=== PATIENT | male | born 1945 | race Caucasian/White ===

== ENCOUNTER 2016-11-01 20:10 | Inpatient (IN) | payer OTHER ==
--- NOTE | ~2016-11-01 | DS ---
Discharge Summary [facility] [address] [facility] [place]. [address] NAME: JAYDON ROSE : 47 STATUS : DIS IN PAT#: [id number] AGE: 71 ADM/REG DATE : 11/01/16 MR#: [id number] REPORT SERV DATE: 11/14/16 DICTATED BY: DAYANARA CHAUDHARY DATE: 11/14/16 REPORT STATUS : Draft TRANSCRIBED BY: OLIVER DATE: 11/14/16 Data Collection from hospitalization DISCHARGE DIAGNOSES: 1. Type 1 second-degree heart block. 2. History of renal transplant. 3. Syncope/dyspnea. 4. Hypertension. 5. History of skin cancer. 6. History of prostate cancer. 7. Obstructive sleep apnea. 8. Hypocalcemia. 9. History of partial parathyroidectomy. CONSULTATIONS: Dayanara Chaudhary M.D. PROCEDURES PERFORMED: 1. Pacemaker implantation on 11/03/2016. 2. Carotid blood flow study on 11/02/2016. MEDICATIONS: Norvasc 5 mg every evening, Os-Mina plus D 500 mg every evening, Sandimmune 200 mg every evening, hydralazine 100 mg every evening, Apresoline 50 mg every morning, [place] 5/325 one tablet every four hours as needed, CellCept 750 mg every evening, Deltasone 5 mg every evening, Flomax 0.4 mg every evening, and Lasix was to be resumed at home dose. CONDITION AT DISCHARGE: Stable. DISPOSITION: The patient was discharged home on a low-sodium, renal diet with activities as instructed. He would follow up with Dr. Delfino Fuentes two to three weeks following discharge. He would follow up with Dr. Dayanara Chaudhary as instructed. HOSPITAL COURSE: This is a 71-year-old man who has chronic kidney disease. He had a renal transplant in January of 1988. He believes that the cause of his renal failure was stress. He has a family medical history of end-stage renal disease with his brother having a transplant as well. He has hypertension, obstructive sleep apnea, and a history of prostate cancer and skin cancer. He presented to the hospital with dizziness, apparently he experienced the episode approximately two weeks ago which resolved quite quickly. On the day prior to this admission while he was out at school, he became lightheaded and had to sit down. He felt as though he was going to pass out. He got clammy, but had no chest pain tightness or palpitations. He had no shortness of breath. His edema had been stable. He had no recent medication changes. The only thing that was new and different was that he had been having multiple skin cancers lately. Given all of this, he presented to the hospital. His labs were unremarkable. Chest x-ray was unremarkable. However, his EKG reveals pauses during the night and he was found to have type 1 second-degree heart block and was felt to be in need of pacemaker placement. He was admitted to the hospital at this time for further evaluation and treatment. Upon admission, creatinine level was 1.2. Gentle IV fluids would be started if his Discharge Summary [address] [place]. [address] NAME: JAYDON ROSE : 47 STATUS : DIS IN PAT#: [id number] AGE: 71 ADM/REG DATE : 11/01/16 MR#: [id number] REPORT SERV DATE: 11/14/16 DICTATED BY: DAYANARA CHAUDHARY DATE: 11/14/16 REPORT STATUS : Draft TRANSCRIBED BY: OLIVER DATE: 11/14/16 creatinine continue to rise. His usual transplant medications were continued. It was felt that he would need to undergo pacemaker placement the following day. The following day, he was seen by Dr. Dayanara Chaudhary regarding near-syncope episode of 2:1 AV block as well as brief episodes of type 1 second-degree AV block. He had symptoms associated with these episodes. BNP was slightly elevated at 162. He had had near syncopal events that were associated with the bradycardic episodes. He was not hyperkalemia. He did not have another root cause for bradycardia. It was felt that he should undergo dual-chamber pacemaker placement. He was going to undergo an echocardiogram to make certain that cardiac structure and function were normal. The patient had seen Dr. Urrutia from [facility] about a year and a half ago and was no longer his patient. He was sent to him because of some questions about atrial fibrillation, which the patient claimed that Dr. Urrutia told him that he did not have this problem. He did undergo a cardiac nuclear study at that time, which the patient reported was unremarkable. Pacemaker implantation was discussed with the patient. Echocardiogram was going to be obtained. His risk of infection was higher because he is on prednisone chronically for his renal transplant. He was willing to proceed. On 11/03/2016, he was taken to the Electrophysiology Laboratory where he underwent the above-mentioned procedure by Dr. Dayanara Chaudhary. He tolerated this well and there were no complications. An echocardiogram and carotid blood flow study had also been performed. Following his procedure, he felt well. He had no new complaints. Discharge planning was performed. Postoperatively, his Medtr[employer] device was checked and had normal device function. On 11/04/2016, he was feeling better. He was able to ambulate without event. Discharge instructions were given. Due to his improved and stable condition, he was discharged home with the above-stated instructions. Information collected by: Alise Becker I submit the above information as my discharge summary. TG/MODL Dayanara Chaudhary M.D. / [id number] CC: Ioana Ontiveros M.D.
--- NOTE | ~2016-11-01 | CN ---
Consultation Report [facility] [address] [place]. [address] NAME: JAYDON ROSE : 47 STATUS : ADM IN PAT#: [id number] AGE: 71 ADM/REG DATE : 11/01/16 MR#: [id number] REPORT SERV DATE: 11/02/16 DICTATED BY: DAYANARA CHAUDHARY DATE: 11/02/16 REPORT STATUS : Draft TRANSCRIBED BY: MODL DATE: 11/02/16 CARDIOLOGY CONSULTATION DATE OF CONSULTATION: 11/02/2016 REASON FOR CONSULTATION: Near syncope episodes of 2:1 AV block. HISTORY OF PRESENT ILLNESS: Mr. Rose is a very pleasant 71-year-old gentleman, who experienced a near syncopal event yesterday. He was at his local high school area where he became increasingly dizzy and lightheaded and was very close to passing out. Eventually, this passed. He said that he has had several of these episodes in the last few weeks. On telemetry here, he has demonstrated episodes of 2:1 AV block as well as brief episodes of type 1 second-degree AV block. He has symptoms associated with these episodes. He denies any chest pain or chest discomfort. He has had some mild dyspnea on exertion. The patient has a history of renal transplantation x3, the last one in 1987, and is followed by the Nephrology Service. PAST MEDICAL HISTORY: Notable for: 1. Renal transplant, most recently in 1987, followed by Nephrology Service. 2. History of hypertension. 3. History of prostate cancer, status post CyberKnife resection and radiation therapy approximately two years ago. 4. History of melanoma resection from the patient's back. 5. History of recurrent basal cell carcinomas, treated with excision. FAMILY HISTORY: Negative for premature coronary disease or sudden cardiac . SOCIAL HISTORY: Negative for tobacco or alcohol. REVIEW OF SYSTEMS: As noted above. All other systems reviewed and negative. PHYSICAL EXAMINATION: VITAL SIGNS: Blood pressure is 128/76; current pulse 68, but has gone down into the 30s with symptoms and the patient having both type 1 second-degree and 2:1 AV block; respirations 16. GENERAL: Well developed, well nourished. HEENT: No icterus. Good dentition. NECK: Supple. No masses or thyromegaly. LUNGS: Breathing comfortably. No rales or wheezes. COR: Normal S1, S2. No S3 or S4. No murmurs, clicks, rubs. No JVD. ABD: Soft, nondistended, nontender. No hepatosplenomegaly. EXT: No clubbing, cyanosis, or edema. Peripheral pulses 2+/= bilaterally. Consultation Report [facility] [address] [place]. [address] NAME: JAYDON ROSE : 47 STATUS : ADM IN [facility]#: [id number] AGE: 71 ADM/REG DATE : 11/01/16 MR#: [id number] REPORT SERV DATE: 11/02/16 DICTATED BY: DAYANARA CHAUDHARY DATE: 11/02/16 REPORT STATUS : Draft TRANSCRIBED BY: OLIVER DATE: 11/02/16 SKIN: Warm and dry. No visible lesions. MS: Chest wall without deformity. No obvious clavicular fractures. NEURO/PSYCH: Oriented x3. No anxiety or depression. DATA: EKG on admission demonstrated sinus rhythm, left axis deviation, first-degree AV block that is profound, QRS and QT intervals within normal limits, probable LVH by voltage. Chest x-ray, probable pulmonary edema, pulmonary vascular congestion. LABORATORY VALUES: BNP is slightly elevated at 162. Electrolytes, BUN and creatinine all within normal limits, glucose slightly elevated. White count 8.2, hematocrit of 47, platelet count 217. IMPRESSION: 1. The patient with demonstration of 2:1 block, profound first-degree AV block, episodes of what appeared to be type 1 second-degree AV block. These are symptomatic. He has near syncopal events that are associated with the bradycardic episodes. He is not hyperkalemic. Does not have another root cause for the bradycardia. I believe he should undergo dual-chamber pacemaker placement. I would like for him to have an echocardiogram to make certain that cardiac structure and function are normal. Of note, the patient did see Dr. Urrutia from [facility] about a year and a half ago and is no longer his patient. He was sent to him because of some questions about atrial fibrillation, which the patient claims that Dr. Urrutia told him he did not have this problem. He did undergo a cardiac nuclear study at that time, which the patient reports was unremarkable. I have discussed pacemaker implantation, how it is performed, as well as the inherent risks which include, but are not exclusive to bleeding, infection, pneumothorax, cardiac perforation, risk of . His risk of infection is higher because he is on prednisone chronically for his renal transplant. He is willing to proceed. 2. Pulmonary edema on admission, seems to be comfortable. We will check an echocardiogram. Question whether this could be diastolic dysfunction as the patient has LVH by voltage on his EKG and history of hypertension. We may need to work with Nephrology on salt and fluid restriction and diuretic if necessary. GS/MODL Dayanara Chaudhary M.D. / [id number] CC: Ioana Ontiveros M.D.
--- NOTE | ~2016-11-01 | HP ---
History And Physical [address] [address] NAME: JAYDON ROSE : [birth year] STATUS : ADM IN [facility]#: [id number] AGE: 71 ADM/REG DATE : 11/01/16 MR#: [id number] REPORT SERV DATE: 11/02/16 DICTATED BY: DATE: REPORT STATUS : Draft TRANSCRIBED BY: MODL DATE: 11/02/16 DATE OF ADMISSION: 11/01/2016 CHIEF COMPLAINT: Dizziness. HISTORY OF PRESENT ILLNESS: Mr. Rose is a 71-year-old white male, followed by Dr. Delfino Fuentes with CKD, renal transplant in 01/1988. He thinks the cause of his renal failure was strep and has a family medical history of end-stage renal disease with his brother having a transplant as well. He has hypertension, obstructive sleep apnea, history of prostate cancer, and skin cancers. He presented to the hospital with dizziness. Apparently, he experienced the episode approximately two weeks ago that resolved quite quickly. Then yesterday while he was out at school, became lightheaded, had to sit down, felt as though he is going to pass out, got clammy. No chest pain, tightness, or palpitations. No shortness of breath. His edema has been stable. No recent medicine changes. The only thing that is new and different is he has been having multiple skin cancers lately. Given all these, he presented to the hospital for evaluation. Labs were unremarkable. Chest x-ray unremarkable. However, his EKG, he has had pauses during the night and found to have type 1 second-degree heart block in need of a pacemaker placement. PAST MEDICAL HISTORY: Renal transplant in 01/1988, his third; obstructive sleep apnea; hypertension; multiple skin cancers including melanoma to his back; hypertension; partial parathyroidectomy; questionable history of atrial fibrillation, but it was ruled out by Dr. Urrutia approximately two years ago; hypocalcemia; and prostate cancer. ALLERGIES: NONE. SOCIAL HISTORY: He is . No tobacco, alcohol, or illicit drug use. He works making [employer] and still remains quite active. HOME MEDICATIONS: Amlodipine, calcium with vitamin D, cyclosporine, hydralazine, hydrocodone, CellCept, prednisone, and Flomax. REVIEW OF SYSTEMS: A 12-point review of systems obtained negative with the exception of that in HPI. PHYSICAL EXAMINATION: VITAL SIGNS: Temperature 97.6, blood pressure 127/50, pulse 60, respiratory rate 20, and O2 saturation is 95%. GENERAL: This is a pleasant, cooperative white man. He is awake, alert, and oriented, in no acute distress. Answers questions appropriately. HEENT: Normocephalic and atraumatic. Conjunctivae clear. Sclerae anicteric. Pupils are equal and round. Oral mucosa is moist. NECK: Carotids without bruits. Neck veins flat. No lymphadenopathy. LUNGS: Respirations are even and unlabored. Breath sounds clear to auscultation. HEART: Rate is regular. I do not hear any murmur, rub, or gallop. His heart tones are distant. History And Physical [address] [address] NAME: JAYDON ROSE : 47 STATUS : ADM IN [facility]#: [id number] AGE: 71 ADM/REG DATE : 11/01/16 MR#: [id number] REPORT SERV DATE: 11/02/16 DICTATED BY: DATE: REPORT STATUS : Draft TRANSCRIBED BY: MODL DATE: 11/02/16 ABDOMEN: Obese, soft, nontender. Transplanted kidney nontender, right lower quadrant. No CVA tenderness. BACK: Within normal limits. EXTREMITIES: He does have 1+ pitting edema bilaterally. SKIN: Multiple lesions and skin cancer of his arms and ears. NEUROLOGIC: No focal deficits. Mood and affect, pleasant and appropriate. PERTINENT LABORATORIES AND X-RAYS: Chest x-ray: Negative with the exception of some atelectasis. Sodium 143, potassium 3.9, chloride 107, CO2 of 25, BUN is 17, creatinine of 1.2. Calcium of 7.4. Magnesium of 1.9. BNP of 162. WBCs of 8, H and H are 16 and 46, and platelets 217,000. IMPRESSION: 1. Near-syncope with dizziness. 2. Type 1 second-degree heart block. 3. Renal transplant. 4. Hypertension. 5. Multiple skin cancers. 6. History of prostate cancer. 7. Obstructive sleep apnea. PLAN: I will follow labs. I will give him some gentle IV fluids if his creatinine continues to rise. Usual transplant medications will be continued. Follow labs and I's and O's. Pacemaker placement tomorrow. Further orders and recommendations pending clinical course. PATRICA/MODL MARCELLE Tucker / [id number] CC: Ioana Ontiveros M.D.
[2016-11-01 19:42] LABS: BASOPHILS 0.6 %; BASOPHILS ABSOLUTE 0.05 10/3/uL (0.0-0.16); EOSINOPHILS 1.1 %; EOSINOPHILS ABSOLUTE 0.09 10/3/uL (0.0-0.53); ER CBC TAT 0 Hrs 08 Mins; HEMATOCRIT 46.8 % (40.0-51.0); HEMOGLOBIN 16.1 g/dL (13.6-17.8); IMMATURE GRANULOCYTES 0.2 %; IMMATURE GRANULOCYTES ABSOLUTE 0.02 10/3/uL (0.0-0.11); LYMPHOCYTES 15.2 %; LYMPHOCYTES ABSOLUTE 1.24 10/3/uL (0.67-4.30); MEAN CORPUS HGB CONC 34.4 g/dL (32.0-36.0); MEAN CORPUSCULAR HEMOGLOB 29.9 pg (26.0-34.0); MONOCYTES 8.6 %; NEUTROPHILS 74.3 %; NEUTROPHILS ABSOLUTE 6.05 10/3/uL (2.02-8.40); PLATELET COUNT 217 10/3/uL (150-400); RBC DISTRIBUTION WIDTH 13.9 % (12.0-16.0); RED CELL COUNT 5.38 10/6/uL (4.7-6.1); WHITE BLOOD CELLS 8.2 10/3/uL (4.5-10.5)
[2016-11-01 19:43] LABS: MANUAL DIFF NO %
[2016-11-01 19:49] LABS: ASCORBIC ACID (UR NOT ORDER) NEG (NEG); BILIRUBIN, URINE NEGATIVE (NEG); ER URINALYSIS TAT 0 Hrs 15 Mins; KETONE, URINE TRACE MG/DL (NEG); LEUKOCYTE ESTERASE(NOT OR NEG (NEG); NITRITE (URINE) NEG (NEG); PARTIAL THROMBO TIME 28.7 SEC (22.5-37.2); WBC (NOT ORDERED) (RFLEX) < 1 (0-5)
[2016-11-01 19:57] LABS: A/G RATIO 0.8 (0.7-1.9); ALBUMIN 3.6 G/DL (3.5-5.0); ALKALINE PHOSPHATASE 79 U/L (45-117); BUN (BLOOD UREA NITROGEN) 17 MG/DL (6-23); CALCIUM, SERUM 7.8 MG/DL (8.5-10.4); CHLORIDE, SERUM 103 MMOL/L (96-112); CO2 (CARBON DIOXIDE) 27 MMOL/L (24-34); CREATININE 1.05 MG/DL (0.70-1.30); GFR AFRICAN AMERICAN 83 ML/MIN (>=60); GFR NON AFRICAN AMERICAN 72 ML/MIN (>=60); GLOBULIN 4.3 G/DL (2.5-4.1); GLUCOSE, SERUM 127 MG/DL (60-99); POTASSIUM, SERUM 3.4 MMOL/L (3.5-5.3); SGOT(AST) 23 U/L (5-40); SGPT(ALT) 21 U/L (5-65); SODIUM, SERUM 141 MMOL/L (135-148); TOTAL BILIRUBIN 1.5 MG/DL (0-1.2); TOTAL PROTEIN 7.9 G/DL (6.0-8.5); TROPONIN I <0.02 NG/ML (<0.05)
[~2016-11-01 20:10] MED LIST: APRES50 PO; CELLCEPT2 PO; FLOMAX4 PO; HYDRALAZINE100 MG PO; NORCO1 TA1 PO; NORV5 PO; OS500+D PO; P5 PO; SANDIMMUNE100 MG PO
[2016-11-02 07:31] LABS: BUN (BLOOD UREA NITROGEN) 17 MG/DL (6-23); CALCIUM, SERUM 7.4 MG/DL (8.5-10.4); CHLORIDE, SERUM 107 MMOL/L (96-112); CO2 (CARBON DIOXIDE) 25 MMOL/L (24-34); CREATININE 1.23 MG/DL (0.70-1.30); GFR AFRICAN AMERICAN 69 ML/MIN (>=60); GFR NON AFRICAN AMERICAN 59 ML/MIN (>=60); GLUCOSE, SERUM 110 MG/DL (60-99); POTASSIUM, SERUM 3.9 MMOL/L (3.5-5.3); SODIUM, SERUM 143 MMOL/L (135-148)
[2016-11-03 06:29] LABS: BASOPHILS 0.5 %; BASOPHILS ABSOLUTE 0.02 10/3/uL (0.0-0.16); EOSINOPHILS 2.5 %; HEMOGLOBIN 14.2 g/dL (13.6-17.8); LYMPHOCYTES 27.8 %; LYMPHOCYTES ABSOLUTE 1.11 10/3/uL (0.67-4.30); MEAN CORPUS HGB CONC 33.9 g/dL (32.0-36.0); MEAN CORPUSCULAR HEMOGLOB 29.5 pg (26.0-34.0); MEAN CORPUSCULAR VOLUME 86.9 fL (80-100); MEAN PLATELET VOLUME 9.8 fL (9.2-13.0); MONOCYTES 11.8 %; MONOCYTES ABSOLUTE 0.47 10/3/uL (0.21-1.20); NEUTROPHILS 57.4 %; PLATELET COUNT 170 10/3/uL (150-400); RBC DISTRIBUTION WIDTH 13.9 % (12.0-16.0); RED CELL COUNT 4.82 10/6/uL (4.7-6.1)
[2016-11-03 06:30] LABS: HEMATOCRIT 41.9 % (40.0-51.0); MANUAL DIFF NO %
[2016-11-03 06:43] LABS: CALCIUM, SERUM 7.4 MG/DL (8.5-10.4); CHLORIDE, SERUM 108 MMOL/L (96-112); CO2 (CARBON DIOXIDE) 22 MMOL/L (24-34); CREATININE 1.15 MG/DL (0.70-1.30); GFR AFRICAN AMERICAN 74 ML/MIN (>=60); GFR NON AFRICAN AMERICAN 64 ML/MIN (>=60); INTERNATIONAL NORMAL RATI 1.1 UNITS (-); POTASSIUM, SERUM 3.7 MMOL/L (3.5-5.3); PROTIME (NOT ORD) 13.7 SEC (12.0-14.5); SODIUM, SERUM 141 MMOL/L (135-148)
[2016-11-03 06:44] LABS: BUN (BLOOD UREA NITROGEN) 22 MG/DL (6-23); GLUCOSE, SERUM 136 MG/DL (60-99)
[2016-11-04 07:05] LABS: BUN (BLOOD UREA NITROGEN) 25 MG/DL (6-23); CALCIUM, SERUM 7.2 MG/DL (8.5-10.4); CHLORIDE, SERUM 109 MMOL/L (96-112); CO2 (CARBON DIOXIDE) 22 MMOL/L (24-34); CREATININE 1.24 MG/DL (0.70-1.30); GFR AFRICAN AMERICAN 68 ML/MIN (>=60); GFR NON AFRICAN AMERICAN 59 ML/MIN (>=60); GLUCOSE, SERUM 150 MG/DL (60-99); PHOSPHORUS, SERUM 2.9 MG/DL (2.5-4.5); SODIUM, SERUM 142 MMOL/L (135-148)
[2016-11-04 07:06] LABS: POTASSIUM, SERUM 4.5 MMOL/L (3.5-5.3)
== END 2016-11-04 13:25 | disposition home or self-care (01) | DRG 243 ==
LOC: ER 20:10 → 2SO 21:33
PROVIDERS: Emergency Medicine; Internal Medicine Cardiovascular Disease; Nurse Practitioner
PROC: 0JH606Z Insertion of Pacemaker, Dual Chamber into Chest Subcutaneous Tissue and Fascia, Open Approach (ICD-10-PCS; principal; 2016-11-03)
PROC: 02HK3JZ Insertion of Pacemaker Lead into Right Ventricle, Percutaneous Approach (ICD-10-PCS; 2016-11-03)
PROC: 02H63JZ Insertion of Pacemaker Lead into Right Atrium, Percutaneous Approach (ICD-10-PCS; 2016-11-03)
DX: I44.1 Atrioventricular block, second degree (principal); Z94.0 Kidney transplant status; Z99.81 Dependence on supplemental oxygen; R55 Syncope and collapse; I10 Essential (primary) hypertension; E66.9 Obesity, unspecified; G47.33 Obstructive sleep apnea (adult) (pediatric); Z85.46 Personal history of malignant neoplasm of prostate; Z98.890 Other specified postprocedural states; Z79.52 Long term (current) use of systemic steroids; Z85.820 Personal history of malignant melanoma of skin
CPT/HCPCS: 33208; 71010; 80048; 80053; 80069; 81001; 83735; 83880; 84132; 84484; 85025; 85610; 85730; 93005; 93306; 93880; 94660; 99285; A9270-GY; C1785; C1892; C1898; J0690; J2370; J2930; J3010; J7502; Q9967